=== PATIENT | female | born 2000 | race Caucasian/White ===

== ENCOUNTER 2020-08-05 09:15 | Outpatient (NON) | payer BC, SELFPAY ==
[2020-08-06 21:17] LABS: SARS-CoV-2 RNA PCR Negative
== END 2020-08-05 09:16 ==
PROVIDERS: PCP Nurse Practitioner Family; Visit Provider Nurse Practitioner Family
DX: Z20.828 Contact with and (suspected) exposure to other viral communicable diseases (principal)
CPT/HCPCS: 87635; C9803; U0003

== ENCOUNTER 2022-05-12 09:31 | Emergency (ER) | payer OTHER, BC, SELFPAY ==
[2022-05-12 09:37] VITALS: BP 117/71; PULSE 102; RESP 16; TEMP 36.4; O2SAT 99
--- NOTE | 2022-05-12 09:57 | ED.ANIMALBIT ---
HPI - Animal Bite General Chief Complaint: Animal Bite Stated Complaint: dog bite to lip Time Seen by Provider: 05/12/22 09:50 History of Present Illness HPI narrative: Patient is a 21-year-old female here for evaluation of a dog bite sustained to her lower lip about 1 hour prior to arrival. 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 There is a piece of her lower lip missing. She is personally up to date on her tetanus shot. Related Data Allergies Allergy/AdvReac Type Severity Reaction Status Date / Time BL[employer] Allergy Intermediate Uncoded 10/30/13 18:28 Review of Systems Review of Systems: Gen: Denies fevers or chills Eyes: Denies eye pain or visual change ENT: Denies congestion Respiratory: Denies shortness of breath or cough CV: Denies chest pain or palpitations GI: Denies abdominal pain nausea, emesis or diarrhea : denies burning, urgency, frequency or hematuria Musculoskeletal: Denies back pain or muscle pain Neuro: Denies numbness, tingling, weakness or focal weakness Skin: Reports lip laceration. Except as documented, all other systems reviewed and negative [facility] Family History Family History (Updated 05/26/14 @ 07:13 by DOCTOR UNKNOWN) Grandparent Hypertension Family history of elevated blood lipids Family history of malignant neoplasm of brain Diabetes mellitus Mother Hypertension Social History Social History Smoking status: Never smoker Alcohol intake: never Exam Narrative: APPEARANCE: Well appearing, no pain in distress, well-nourished. Head: Normocephalic and atraumatic. EYES: PERRLA/EOMI, conjunctivae clear NOSE: No nasal drainage EARS: External ear normal in appearance THROAT: Oropharynx is clear. Mucous membranes are moist. NECK: Supple. No adenopathy, no masses. RESPIRATORY: Airway patent, respirations nonlabored. Clear to auscultation bilaterally, no rales, rhonchi, wheezing. CARDIOVASCULAR: Regular rate and rhythm without murmurs, rubs, or gallops. ABDOMINAL: Normoactive bowel sounds. Soft, nontender, nondistended. No rebound tenderness or guarding. MUSCULOSKELETAL: Extremities are warm and well-perfused. Moves all extremities well. No edema. NEURO: Normal speech. No focal neurologic deficits. SKIN: There is a 0.5 cm x 0.5 cm circular area missing from the center of the lower lip, just barely touching the lower vermilion border, does not go through the vermilion border. There is a small skin flap hanging off of this area. PSYCHIATRIC: Normal affect/mood. Course Vital Signs Vital signs: Vital Signs Temperature 97.6 F 05/12/22 09:37 Pulse Rate 102 H 05/12/22 09:37 Respiratory Rate 16 05/12/22 09:37 Blood Pressure 117/71 05/12/22 09:37 Pulse Oximetry 99 05/12/22 09:37 Oxygen Delivery Room Air 05/12/22 09:37 Temperature 97.6 F 05/12/22 09:37 Pulse Rate 94 05/12/22 10:38 Respiratory Rate 20 05/12/22 10:38 Blood Pressure 116/68 05/12/22 10:38 Pulse Oximetry 100 05/12/22 10:38 Oxygen Delivery Room Air 05/12/22 09:37 MDM - Animal Bite MDM Narrative Medical decision making narrative: 21-year-old female here for evaluation of a small area of her lip that was removed in a dog bite prior to arrival. Dog's vaccinations are up-to-date as well as the patient's. No involvement of the vermilion border. Favor delayed primary closure with antibiotics given high likelihood of infection. Wound irrigated extensively. We will provide referral to plastic surgery and placed patient on antibiotics. Return precautions discussed. Discharge Plan Discharge Clinical Impression: Bite by animal Patient Disposition: Home, Self-Care Condition: Stable Instructions: Antibiotic Form, Animal Bite (ED) Additional Instructions: Please take the antibiotic as directed to prevent infection. Call the office of the plastic surgeon to follow up for evalua
[2022-05-12] MEDS: AMOXICILLIN/CLAVULANATE K 875-125 MG TAB 1 TABLET PO (10:31)
[2022-05-12] MEDS: IBUPROFEN 400 MG TABLET 800 MG PO (10:31)
[2022-05-12 10:38] VITALS: BP 116/68; PULSE 94; RESP 20; O2SAT 100
== END 2022-05-12 10:41 | disposition home or self-care (01) ==
LOC: ANHED 10:11
PROVIDERS: Emergency Provider Emergency Medicine; PCP Nurse Practitioner Family
DX: S01.551A Open bite of lip, initial encounter (principal); W54.0XXA Bitten by dog, initial encounter
CPT/HCPCS: 99283; A9270